=== PATIENT | female | born 1935 | race Caucasian/White ===

== ENCOUNTER 2017-03-21 12:52 | Emergency (ER) ==
[2017-03-21 12:58] VITALS: BP 111/73; TEMP 98.1; BMI 21.9
--- NOTE | 2017-03-21 13:56 | DI ---
EXAM: CHEST FRONTAL VIEW HISTORY: Palpitations. COMPARISON: None FINDINGS: Normal heart size. Mild to moderate atherosclerotic disease. Pacemaker unit is noted wit h the leads in grossly normal position. Hyperinflation. No acute infiltrates are seen. No vascular congestion. There is no consolidation, visible pleural fluid or pneumothorax. Bones reveal no acute fracture. IMPRESSION: No acute cardiopulmonary process.
--- NOTE | 2017-03-21 15:00 | ED.PDOC ---
General ED Provider: Dr. KORTNEY MONACO-ER Chief Complaint: Chest Pain Stated Complaint: she had chest pain for a few min and then it resolved-- patient laughing and joking with me and staff Time Seen by Physician: 12:55 Mode of Arrival: Wheelchair Information Source: Patient, Family Exam Limitations: Dementia Nursing and Triage Documentation Reviewed and Agree: Yes Reviewed sepsis parameters & appropriate labs ordered?: Yes System Inflammatory Response Syndrome: Not Applicable Sepsis Protocol: For patient's 13 years and over: Temp is 96.8 and below OR 101 and greater Pulse >90 BPM Resp >20/minute Acutely Altered Mental Status Are patient's symptoms suggestive of a new infection, such as: -Pneumonia -Skin, Soft Tissue -Endocarditis -UTI -Bone, Joint Infection -Implantable Device -Acute Abdominal Infection -Wound Infection -Meningitis -Blood Stream Catheter Infection -Unknown Cardiovascular Complaint Exam - Chest Pain Complaint/Exam Onset: Sudden Duration: 10 min Symptoms Are: Resolved Timing: Constant Length of Chest Pain Episodes: 10 min Initial Severity: Mild Current Severity: None Location: Reports: Diffuse Pain Radiates: Reports: None Character: Reports: Sharp, Stabbing Aggravating: Reports: None Alleviating: Reports: Spontaneous resolution Associated Signs and Symptoms: Denies: Diaphoresis, Nausea, Vomiting, Fever, Palpitations, Cough, Hemoptysis, Back pain, Abdominal pain, Dizziness, Short of air, Calf pain, Calf swelling History of Healthcare-Acquired Pneumonia: Reports: No Prior Care for this Complaint: Yes Recent Stress Test: No Recent Echo/LV Function: No JVD Present: No Subcutaneous Emphysema Present: No Diminshed Breath Sounds: No Reproducible Chest Wall Pain: No Bilateral Pulses Present: Yes Unequal Pulses Noted: No If Risk Factors for AMI/ACS Consider: EKG, Cardiac Enzymes Differential Diagnoses: ACS, GI Diseasae Quality Indicator For Non-Traumatic Chest Pain/Syncope: EKG Performed Review of Systems - Review Of Systems Constitutional: Reports: No symptoms Eyes: Reports: No symptoms Ears, Nose, Mouth, Throat: Reports: No symptoms Respiratory: Reports: No symptoms Cardiac: Reports: Chest pain GI: Reports: No symptoms : Reports: No symptoms Musculoskeletal: Reports: No symptoms Skin: Reports: No symptoms Neurological: Reports: No symptoms Endocrine: Reports: No symptoms Hematologic/Lymphatic: Reports: No symptoms All Other Systems: Reviewed and Negative Past Medical History - Past Medical History Previously Healthy: No Endocrine: Reports: Unknown Cardiovascular: Reports: Unknown Respiratory: Reports: Unknown Hematological: Reports: Unknown Gastrointestinal: Reports: Unknown Genitourinary: Reports: Unknown Neuro/Psych: Reports: Unknown Musculoskeletal: Reports: Unknown Cancer: Reports: Unknown Last Menstrual Period: n/a - Surgical History General Surgical History: Reports: Unknown - Family History Family History: Reports: Unknown - Social History Smoking Status: Never smoker Hx Substance Use: No Alcohol Screening: None Lives: With family Physical Exam - Physical Exam Appearance: Well-appearing, No pain distress, Well-nourished Pain Distress: Mild Eyes: INGE, EOMI, Conjunctiva clear ENT: Ears normal, Nose normal, Oropharynx normal Neck: Supple Respiratory: Airway patent, Breath sounds clear, Breath sounds equal, Respirations nonlabored Cardiovascular: RRR GI/: Soft, Nontender, No masses, Bowel sounds normal, No Organomegaly Musculoskeletal: Normal strength, ROM intact, No edema, No calf tenderness Skin: Warm, Dry, Normal color Neurological: Sensation intact, Motor intact, Reflexes intact, Cranial nerves intact, Alert, Oriented Psychiatric: Affect appropriate, Mood appropriate Interpretation - Radiology Interpretation Radiology Interpretation By: Radiologist Radiology Results: Negative Exam Interpreted: Portable CXR Re-Evaluation - Re-Evaluation Time of Re-Evaluation: 15:01 Status: Improved (no pain since being here) Vital Signs Stable: Yes Pain Level: 0 Appearance: NAD Lungs: Clear Skin: Warm and Dry Neuro: Alert and Oriented X3 CV: RRR Critical Care Note - Critical Care Note Total Time (mins): 0 Course - Course Hematology/Chemistry: 03/21/17 13:30 03/21/17 13:30 Orders, Labs, Meds: Lab Review 03/21/17 03/21/17 03/21/17 13:30 13:30 13:30 WBC 8.34 RBC 3.80 L Hgb 11.3 L Hct 33.5 L MCV 88.2 MCH 29.7 MCHC 33.7 RDW Coeff of Tamica 12.7 Plt Count 223 Immature Gran % (Auto) 0.4 Neut % (Auto) 52.6 Lymph % (Auto) 36.7 Hartley % (Auto) 6.7 Eos % (Auto) 2.6 Baso % (Auto) 1.0 Immature Gran # (Auto) 0.0 Neut # 4.4 Lymph # 3.1 Hartley # 0.6 Eos # 0.2 Baso # 0.1 D-Dimer (Manual) Sodium 136 Potassium 4.3 Chloride 101 Carbon Dioxide 25 Anion Gap 14.3 BUN 22 H Creatinine 1.39 H Estimated GFR (MDRD) 36.00 BUN/Creatinine Ratio 15.82 Glucose 105 Calcium 8.5 Total Bilirubin < 0.3 AST 19 ALT 13 Alkaline Phosphatase 73 Total Creatine Kinase 205 CK-MB (CK-2) 2.8 CK-MB (CK-2) % 1.37787 Troponin I 0.0150 B-Natriuretic Peptide 99 Total Protein 5.9 Albumin 3.3 L Globulin 2.6 Albumin/Globulin Ratio 1.27 TSH Free T4 03/21/17 03/21/17 13:30 13:30 WBC RBC Hgb Hct MCV MCH MCHC RDW Coeff of Tamica Plt Count Immature Gran % (Auto) Neut % (Auto) Lymph % (Auto) Hartley % (Auto) Eos % (Auto) Baso % (Auto) Immature Gran # (Auto) Neut # Lymph # Hartley # Eos # Baso # D-Dimer (Manual) 616.40 Sodium Potassium Chloride Carbon Dioxide Anion Gap BUN Creatinine Estimated GFR (MDRD) BUN/Creatinine Ratio Glucose Calcium Total Bilirubin AST ALT Alkaline Phosphatase Total Creatine Kinase CK-MB (CK-2) CK-MB (CK-2) % Troponin I B-Natriuretic Peptide Total Protein Albumin Globulin Albumin/Globulin Ratio TSH 0.967 Free T4 1.00 Orders Category Date Time Status EKG-(ED ONLY) Stat CARDIO 03/21/17 13:01 Completed Granulizing Machine Operator [ED FURNITURE REPRODUCER APPLIED] .ONCE EMERGENCY 03/21/17 13:02 Active BNP [B-TYPE NATRIURETIC PEPTIDE] Stat LAB 03/21/17 13:30 Completed CBC W/ AUTO DIFF Stat LAB 03/21/17 13:30 Completed COMPREHENSIVE METABOLIC PANEL Stat LAB 03/21/17 13:30 Completed CREATINE KINASE Stat LAB 03/21/17 13:30 Completed D-DIMER Stat LAB 03/21/17 13:30 Completed FREE T4 (FREE THYROXINE) Stat LAB 03/21/17 13:30 Completed THYROID STIMULATING HORMONE Stat LAB 03/21/17 13:30 Completed TROPONIN I Stat LAB 03/21/17 13:30 Completed CXR [CHEST, 1V AP ONLY] Stat RADS 03/21/17 13:03 Completed no pain since being in the er--the son spoke to his sister the poa--they desired for her to go home if nothing acute--they do not want her observed Vital Signs: Temp Pulse Resp BP Pulse Ox 03/21/17 12:52 98.1 F 67 16 111/73 94 L DANNI Risk Score DANNI Risk Score: Risk Score Odds of by 30D 0 0.1 (0.1-0.2) 1 0.3 (0.2-0.3) 2 0.4 (0.3-0.5) 3 0.7 (0.6-0.9) 4 1.2 (1.0-1.5) 5 2.2 (1.9-2.6) 6 3.0 (2.5-3.6) 7 4.8 (3.8-6.1) Departure - Departure Time of Disposition: 15:02 Disposition: HOME SELF-CARE Discharge Problem: Chest pain Instructions: Chest Pain (ED) Condition: Stable Pt referred to PMD for follow-up: Yes Additional Instructions: return prn if any further chest pain or call 911 Allergies/Adverse Reactions: Allergies codeine Adverse Reaction (Verified 03/21/17 12:58) morphine Adverse Reaction (Verified 03/21/17 12:58) Home Medications: Ambulatory Orders Acetaminophen [Tylenol] 500 mg PO 02/05/14 Aspirin/Calcium Carbonate/Mag [Aspirin Buffered 325 mg Tab] 02/05/14 Celecoxib [Celebrex] 200 mg PO 02/05/14 Clopidogrel Bisulfate [Plavix] 75 mg PO 02/05/14 Docusate Sodium [Dulcolax Stool Softener] 02/05/14 Enoxaparin Sodium [Lovenox] 40 mg SQ DAILY 02/05/14 Escitalopram Oxalate [Lexapro] 10 mg PO DAILY 02/05/14 Esomeprazole Magnesium [Nexium] 40 mg PO 02/05/14 Furosemide [Lasix] 20 mg PO 02/05/14 Gabapentin [Neurontin] 300 mg PO TID 02/05/14 Levothyroxine Sodium [Synthroid] 100 mcg PO QDAC 02/05/14 Lidocaine [Lidoderm] 02/05/14 Losartan/Hydrochlorothiazide [Losartan-Hctz 100-25 mg Tab] 02/05/14 Methocarbamol [Robaxin] 500 mg PO 02/05/14 Metoprolol Succinate [Toprol Xl] 25 mg PO 02/05/14 Pravastatin Sodium [Pravachol] 40 mg PO BEDTIME 02/05/14 Ropinirole HCl [Requip] 2 mg PO 02/05/14 Teriparatide [Forteo] 2.4 ml SQ 02/05/14 Vit B Comp/C/FA/Iron Sulf/Devika [Stress Formula with Iron Tab] 1 each PO Disposition Discussed With: Patient, Family
== END 2017-03-21 15:38 | disposition home or self-care (01) ==
LOC: ED 12:52
DX: R07.9 Chest pain, unspecified (principal); Z79.899 Other long term (current) drug therapy
CPT/HCPCS: 36415; 80053; 82550; 82553; 83880; 84439; 84443; 84484; 85025; 85379; 93005; 93010; 99283

== ENCOUNTER 2017-04-29 08:50 | Outpatient (CLI) | END 2017-04-29 08:51 | disposition short-term general hospital (02) | LOC: AMBL 08:50 | PROVIDERS: ATTEND Internal Medicine | DX: R56.9 Unspecified convulsions (principal); R06.9 Unspecified abnormalities of breathing; R73.9 Hyperglycemia, unspecified; R41.82 Altered mental status, unspecified; R40.4 Transient alteration of awareness; R47.9 Unspecified speech disturbances; R40.2421 Glasgow coma scale score 9-12, in the field [EMT or ambulance]; Z86.73 Personal history of transient ischemic attack (TIA), and cerebral infarction without residual deficits ==